=== PATIENT | male | born 1960 | race African-American/Black ===

== ENCOUNTER 2020-07-06 08:00 | Day surgery (SDC) | payer OTHER ==
[~2020-07-06 08:00] MED LIST: AMIODARONE HCL200 MG PO; ASPIR 8181 MG PO; ATROVENT H0.017 MG/1 IH; ATROVENT H0.017 MG/1 INH; CALCIUM CARBONA1 TAB PO; COREG6.25 MG PO; COUMADIN2 MG PO; DIG125 PO; DILTIAZEM HCL180 MG PO; DOXYCYCLINE MO100 MG PO; ENALAPRIL MALEA20 MG PO; FLUOXETINE10 M2 PO; FUROSEMIDE40 MG PO; OMEPRAZOLE DR20 M1 PO; RANITIDINE HCL150 M1 PO; SINGULAIR10 MG PO; THEO-DUR200 MG PO; XOPENEX1.25 MG/3 NEB; ZESTRIL5 MG PO; [UNRECOGNIZED DRUG - CODE] PO
== END 2020-07-06 10:01 | disposition home or self-care (01) ==
LOC: GI 08:00 → OR 11:00 → GI 11:00 → DS 11:00 → GI 14:00
PROVIDERS: ATTEND Internal Medicine Gastroenterology
DX: R19.5 Other fecal abnormalities (principal); Z53.8 Procedure and treatment not carried out for other reasons

== ENCOUNTER 2020-08-03 08:26 | Day surgery (SDC) | payer OTHER ==
[~2020-08-03] VITALS: Ht 177.8 cm; Wt 94.0 kg
[2020-08-03 08:43] VITALS: BP 149/95
[2020-08-03 11:55] VITALS: BP 128/89
== END 2020-08-03 12:05 | disposition home or self-care (01) ==
LOC: DS 08:26 → OR 10:00 → DS 12:05
PROVIDERS: ATTEND Internal Medicine Gastroenterology
DX: R19.5 Other fecal abnormalities (principal); K57.30 Diverticulosis of large intestine without perforation or abscess without bleeding; K63.89 Other specified diseases of intestine; K64.1 Second degree hemorrhoids; I48.91 Unspecified atrial fibrillation; I10 Essential (primary) hypertension; J44.9 Chronic obstructive pulmonary disease, unspecified; Z79.82 Long term (current) use of aspirin; Z83.6 Family history of other diseases of the respiratory system; Z82.49 Family history of ischemic heart disease and other diseases of the circulatory system
CPT/HCPCS: 45378; J1200; J1610; J2250; J2310; J3010; J3490